=== PATIENT | female | born 1950 | race Caucasian/White ===

== ENCOUNTER 2021-07-26 12:04 | Outpatient (CLI) | payer MEDICARE, OTHER, SELFPAY ==
--- NOTE | 2021-07-26 12:00 | XR_ITS ---
WS: [id number] Exam: XR KUB [id number] Date/Time of Exam: 07/26/2021 12:12 PM Reason For Exam: RENAL CALCULUS Comparison 12/20/2016. Several small calcifications superimpose right renal silhouette and may represent stones. No bowel ob struction or free air. No sign of organ enlargement. Moderate amount stool in the large bowel. Nonspe cific pelvic calcifications. XR/XR KUB [id number] IMPRESSION: 1. Several small ill-defined calcifications seen in the region of the right kid maria dolores that may represent renal stones 2. No acute abdominal process.
== END 2021-07-26 12:05 | disposition home or self-care (01) ==
LOC: RAD 12:08
PROVIDERS: PCP Family Medicine; Visit Provider Urology
DX: N20.0 Calculus of kidney (principal)
CPT/HCPCS: 74018; 81003

== ENCOUNTER 2021-08-02 07:29 | Outpatient (CLI) | payer MEDICARE, OTHER, SELFPAY ==
--- NOTE | 2021-08-02 07:36 | XR_ITS ---
WS: [id number] XR KUB [id number] REASON FOR EXAM: RENAL CALCULUS FINDINGS: No definite urinary tract calculi. Unremarkable bowel gas pattern. No free air or retroperitoneal air identified. Discrete bone island left sacral wing. Extensive calcifications in the common hamstring tendons bilat erally. XR/XR KUB [id number] IMPRESSION: No urinary tract calculi identified.
== END 2021-08-02 07:30 | disposition home or self-care (01) ==
LOC: RAD 07:32
PROVIDERS: PCP Family Medicine; Visit Provider Urology
DX: N20.0 Calculus of kidney (principal)
CPT/HCPCS: 74018

== ENCOUNTER 2022-08-01 10:12 | Outpatient (CLI) | payer MEDICARE, OTHER, SELFPAY ==
--- NOTE | 2022-08-01 10:23 | XR_ITS ---
WS: [id number] KUB, AP view, 08/01/2022 Clinical Data: Renal Calculus Comparison: KUB, 08/02/2021. Findings: No abnormal intraabdominal masses or calcifications are seen. There is no dilatated small bowel or ev idence of obstruction. There is a moderate amount of fecal material throughout the colon. There are calcifications in the ri ght inguinal areas which may be within muscles. XR/XR KUB [id number] Impression: Negative KUB.
== END 2022-08-01 10:13 | disposition home or self-care (01) ==
LOC: RAD 10:17
PROVIDERS: PCP Family Medicine; Visit Provider Urology
DX: N20.2 Calculus of kidney with calculus of ureter (principal); Z98.890 Other specified postprocedural states; Z87.448 Personal history of other diseases of urinary system
CPT/HCPCS: 74018; 81003; 99213